=== PATIENT | male | born 1965 | race Caucasian/White ===

== ENCOUNTER 2024-11-27 14:32 | Emergency (ER) | payer OTHER, SELFPAY ==
[2024-11-27] VITALS (14 sets, daily range): BP systolic 136–168; BP diastolic 77–101; BMI 24.9
[2024-11-27] MEDS: ROXICODONE 5 MG PO (16:46)
[2024-11-27] MEDS: TORADOL 30 MG IM (17:05)
[2024-11-27] MEDS: DIPRIVAN 80 MG IV (17:28)
[2024-11-27] MEDS: DIPRIVAN 20 MG IV (17:29)
--- NOTE | 2024-11-27 17:48 | ED.GENMED ---
History of Present Illness
General
Chief Complaint: Musculo-Skeletal Complaint
Source: patient and spouse
Exam Limitations: none
Time Seen by Provider: 11/27/24 16:19
Nursing documentation reviewed up to this point in time: agreed with
History of Present Illness
History of Present Illness:
59-year-old right-handed male presents for evaluation of a right wrist injury after a slip and fall on ice. Patient reports that about an hour prior to arrival he was shoveling ice off of his back steps when he slipped and fell. Landed on his
right wrist outstretched. He says he did not hit his head or sustain any other injuries. Has significant pain and deformity the right wrist. Denies any headache, neck pain, back pain, chest pain, abdominal pain or any other complaints. He is not
on any blood thinners he says.
Review of Systems
Review of Systems
All Other Systems: ROS reviewed and negative except as documented in HPI and ROS
Musculoskeletal: Reports joint pain (Wrist pain); Denies neck pain or back pain
Neurological: Denies headache
Phy Exam
Physical Exam
Physical Exam:
General: Awake, alert, oriented x3; no acute distress
Head: Normocephalic, atraumatic
Eyes: Conjunctiva normal
Throat: Airway intact, handling secretions
Neck: Trachea midline, no cervical spine tenderness
Back: No signs of trauma the back or flank and no tenderness in the thoracic or lumbar spine
Lungs: Breathing comfortable with no distress
Heart: Regular rate; no chest wall tenderness
Abd: Soft, non distended, nontender
Neuro: Cranial nerves grossly intact, speech fluid; motor and sensory intact radial, median, ulnar nerve distributions right upper extremity
Skin: no rash, no abrasions or lacerations in area of concern of the wrist
Extremities: Patient is deformed the right wrist with significant pain to palpation of the distal radius; no tenderness of the right elbow or shoulder; good strong radial pulse in the right; rest of extremities are atraumatic
Scores
Heart Failure Risk
Heart Failure Risk Score: Not Applicable
Heart Score for Chest Pain Patients
STEMI patient?: Not applicable
Withdrawal Assessment of Alcohol
Withdrawal Assessment Completed?: Not applicable
Course
Orders/Labs/Results
Orders:
Orders
11/27/24 14:54
Wrist, Right 3 Views [CR Wrist - Right Min 3 Views] Urgent
Comment:
Reason For Exam: fall, pain
11/27/24 16:44
Oxycodone [Roxicodone] 5 mg .ROUTE .STK-MED ONE
11/27/24 16:46
Oxycodone [Roxicodone] 5 mg PO NOW STA
11/27/24 16:55
Ketorolac [Toradol] 30 mg IM NOW STA
CR Wrist - Right Min 2 Views Urgent
Reason For Exam: post reduction
11/27/24 17:24
Propofol [Diprivan] 20 ml .ROUTE .STK-MED
11/27/24 17:32
CR Wrist - Right Min 2 Views Urgent
Comment:
Reason For Exam: post reduction
Vital Signs
Initial and Last Documented VS:
Initial Vital Signs
Temp Pulse Resp BP Pulse Ox
36.8 C 56 20 137/84 100
11/27/24 14:40 11/27/24 14:40 11/27/24 14:40 11/27/24 14:40 11/27/24 14:40
Last Documented Vital Signs
Temp Pulse Resp BP Pulse Ox
36.8 C 56 20 137/84 100
11/27/24 14:40 11/27/24 14:40 11/27/24 14:40 11/27/24 14:40 11/27/24 14:40
Procedures
Moderate Sedation
ASA Risk Score: Class II
Chart and allergies reviewed: Yes
Consent for anesthesia obtained: Yes
Time out completed (validating right patient & procedure): Yes
Moderate Sedation Start Time(when first medication is given): 17:28
History of difficult intubation: No
Airway free of obstruction: Yes
Patient has a gag reflex: Yes
Patient is able to open mouth: Yes
Patient has no dentures: Yes
Patient has no loose teeth: Yes
Medication administered by Provider during Moderate Sedation: IV Propofol (mg)
Total dose administered: 120
Time drug administered: 17:28
Moderate Sedation Procedure End Time: 17:43
Splinting/Sling Placement
Right Arm:
Procedure completed by: García Piña MD
Pre-splint extermity exam: neurovascular intact
Type of splint: sugar-tong
Splint material: fiberglass
Splint checked by provider?: Yes
Type of sling: sling fitted
Normal distal neurovascular exam?: Yes
Joint/Fracture Reduction
Right Wrist:
Indication for procedure:: wrist fracture
Procedure completed by: García Piña MD
Consent form signed: Yes
Anesthesia/sedation: Moderate sedation
Injury was: closed
Further treatement: needs further treatment
Post reduction exam: stable
Capillary Refill: normal
Normal distal neurovascular exam?: Yes
MDM/Problems Addressed
Differential Diagnosis Includes:
Fracture, sprain, dislocation
MDM/Problems Addressed:
59-year-old male presents after a slip and fall on ice complaining of right wrist pain. His x-ray shows distal radius fracture on the right with ulnar styloid fracture and small triquetrum fracture. Distal radius fracture is dorsally angulated and
displaced. Initially attempted reduction using hematoma block but due to inadequate anesthesia patient did not tolerate well and initial postreduction x-ray does not show significant treatment. Discussed with patient decision made to proceed with
reduction under sedation. We did have improvement in dorsal angulation and fracture alignment on second reduction attempt. Placed in sugar-tong splint by me and fitted with a sling. Will observe after sedation and plan for discharge with hand
surgical referral.
*Radiology
Radiology exam reviewed: preliminary read by ED provider and radiology read reviewed
*Pulse Oximetry
Patient hypoxic: no
*Critical Care Note
Total Time (30-74mins, 75-104mins- exclusive of procedures): Not Applicable
Data Reviewed
Source: patient and spouse
ED Attending Note
-
Portions of this chart may have been created with voice recognition software.� Occasional wrong word or��sound alike� substitutions may have occurred due to the inherent limitations of voice recognition software.
Discharge Plan
Departure
Date of Disposition: 11/27/24
Time of Disposition: 17:47
Patient with high blood pressure during this ER visit?: No
Discharge Problem:
Fracture of wrist
Instructions: Wrist Fracture (DC), MODERATE SEDATION ADULT
Referrals:
Hector Restrepo MD [Active] - Call in 1-3 days for appt (Hand surgeon)
Activity Restrictions/Additional Instructions:
Thank you for visiting the Emergency Department at [facility].
1. Please schedule a follow up appointment as directed. Call first thing tomorrow morning to make an appointment.
2. If indicated, please take your medications as instructed and indicated on discharge paperwork.
3. If any of your symptoms do not improve, or persist, or become more severe within 6-12 hours, please return to the emergency department for further care.
4. Please return to the emergency department if you develop a headache, neck pain/stiffness, fever greater than 100.4F, chest pain, shortness of breath, persistent nausea, vomiting, slurred speech, difficulty walking, numbness/tingling, weakness,
signs of infection or any other symptoms that are worrisome to you.
Please call [phone] if you have any questions.
Interventions
Interventions:
*Risk Screen - Suicide Last Done: 11/27/24 14:40
*General Assessment Last Done: 11/27/24 15:51
ED- Fall Risk Assessment Last Done: 11/27/24 15:51
*ED COVID-19 Vaccine History Last Done: 11/27/24 15:51
ED-Musculoskeletal Assessment Last Done: 11/27/24 15:52
Discharge Date and Time
Print Language: [id number]
== END 2024-11-27 18:28 | disposition home or self-care (01) ==
LOC: EMR 14:32
PROVIDERS: EMERGENCY PHYSICIAN Emergency Medicine; FAMILY PHYSICIAN Family Medicine
DX: S52.611A Displaced fracture of right ulna styloid process, initial encounter for closed fracture (principal); W00.0XXA Fall on same level due to ice and snow, initial encounter
CPT/HCPCS: 99284; 25605; 99152; 96374; 96376; 96372; 73100; 73110

== ENCOUNTER 2024-12-15 06:49 | Outpatient (RCR) | payer OTHER, SELFPAY | END 2024-12-15 23:59 | disposition home or self-care (01) | LOC: ROT 06:49 | PROVIDERS: ATTENDING PHYSICIAN Orthopaedic Surgery Hand Surgery; FAMILY PHYSICIAN Family Medicine | DX: S52.501D Unspecified fracture of the lower end of right radius, subsequent encounter for closed fracture with routine healing (principal); Z73.6 Limitation of activities due to disability | CPT/HCPCS: 97010; 97166; 97535 ==

== ENCOUNTER 2025-01-11 16:01 | Outpatient (RCR) | payer OTHER, SELFPAY | END 2025-01-11 23:59 | disposition home or self-care (01) | LOC: ROT 16:01 | PROVIDERS: ATTENDING PHYSICIAN Orthopaedic Surgery Hand Surgery; FAMILY PHYSICIAN Family Medicine | DX: S52.501D Unspecified fracture of the lower end of right radius, subsequent encounter for closed fracture with routine healing (principal); Z73.6 Limitation of activities due to disability | CPT/HCPCS: 97010; 97018; 97022; 97110; 97140; 97535 ==

== ENCOUNTER 2025-02-14 15:58 | Outpatient (RCR) | payer OTHER, SELFPAY | END 2025-02-14 23:59 | disposition home or self-care (01) | LOC: ROT 15:58 | PROVIDERS: ATTENDING PHYSICIAN Orthopaedic Surgery Hand Surgery; FAMILY PHYSICIAN Family Medicine | DX: S52.501D Unspecified fracture of the lower end of right radius, subsequent encounter for closed fracture with routine healing (principal); Z73.6 Limitation of activities due to disability; X58.XXXD Exposure to other specified factors, subsequent encounter | CPT/HCPCS: 97010; 97018; 97022; 97110; 97140; 97535 ==

== ENCOUNTER 2025-03-16 15:45 | Outpatient (RCR) | payer OTHER, SELFPAY | END 2025-03-16 23:59 | disposition home or self-care (01) | LOC: ROT 15:45 | PROVIDERS: ATTENDING PHYSICIAN Orthopaedic Surgery Hand Surgery; FAMILY PHYSICIAN Family Medicine | DX: S52.501D Unspecified fracture of the lower end of right radius, subsequent encounter for closed fracture with routine healing (principal); Z47.89 Encounter for other orthopedic aftercare (principal); X58.XXXD Exposure to other specified factors, subsequent encounter; Z73.6 Limitation of activities due to disability | CPT/HCPCS: 97010; 97018; 97110; 97140 ==

== ENCOUNTER 2025-04-12 16:00 | Outpatient (RCR) | payer OTHER, SELFPAY | END 2025-04-12 23:59 | disposition home or self-care (01) | LOC: ROT 16:00 | PROVIDERS: ATTENDING PHYSICIAN Orthopaedic Surgery Hand Surgery; FAMILY PHYSICIAN Family Medicine | DX: Z47.89 Encounter for other orthopedic aftercare (principal); S52.501D Unspecified fracture of the lower end of right radius, subsequent encounter for closed fracture with routine healing; Z73.6 Limitation of activities due to disability; X58.XXXD Exposure to other specified factors, subsequent encounter | CPT/HCPCS: 97010; 97018; 97110; 97140 ==

== ENCOUNTER 2025-05-04 16:05 | Outpatient (RCR) | payer OTHER, SELFPAY | END 2025-05-04 23:59 | disposition home or self-care (01) | LOC: ROT 16:05 | PROVIDERS: ATTENDING PHYSICIAN Orthopaedic Surgery Hand Surgery; FAMILY PHYSICIAN Family Medicine | DX: S52.501D Unspecified fracture of the lower end of right radius, subsequent encounter for closed fracture with routine healing (principal); Z73.6 Limitation of activities due to disability; X58.XXXD Exposure to other specified factors, subsequent encounter; Z47.89 Encounter for other orthopedic aftercare | CPT/HCPCS: 97010; 97018; 97110; 97140 ==

== ENCOUNTER 2025-06-08 15:58 | Outpatient (RCR) | payer OTHER, SELFPAY | END 2025-06-08 23:59 | disposition home or self-care (01) | LOC: ROT 15:58 | PROVIDERS: ATTENDING PHYSICIAN Orthopaedic Surgery Hand Surgery; FAMILY PHYSICIAN Family Medicine | DX: S52.501D Unspecified fracture of the lower end of right radius, subsequent encounter for closed fracture with routine healing (principal); Z73.6 Limitation of activities due to disability; X58.XXXD Exposure to other specified factors, subsequent encounter; W00.0XXD Fall on same level due to ice and snow, subsequent encounter; Z47.89 Encounter for other orthopedic aftercare | CPT/HCPCS: 97018; 97110; 97140 ==

== ENCOUNTER 2025-07-13 17:25 | Outpatient (RCR) | payer OTHER, SELFPAY | END 2025-07-13 23:59 | disposition home or self-care (01) | LOC: ROT 17:25 | PROVIDERS: ATTENDING PHYSICIAN Orthopaedic Surgery Hand Surgery; FAMILY PHYSICIAN Family Medicine | DX: Z47.89 Encounter for other orthopedic aftercare (principal); S52.501D Unspecified fracture of the lower end of right radius, subsequent encounter for closed fracture with routine healing; Z73.6 Limitation of activities due to disability; W00.0XXD Fall on same level due to ice and snow, subsequent encounter; X58.XXXD Exposure to other specified factors, subsequent encounter | CPT/HCPCS: 97018; 97110; 97140 ==